=== PATIENT | female | born 1965 | race Native Hawaiian/Other Pacific Islander ===

== ENCOUNTER 2021-06-17 09:12 | Outpatient (CLI) | payer BC | END 2021-06-17 18:57 | disposition home or self-care (01) | LOC: MRI 09:12 | PROVIDERS: ATTEND Anesthesiology Pain Medicine | DX: M54.2 Cervicalgia (principal); M54.50 Low back pain, unspecified ==

== ENCOUNTER 2021-07-17 12:54 | Outpatient (CLI) | payer BC | END 2021-07-17 19:55 | disposition home or self-care (01) | LOC: MRI 12:54 | PROVIDERS: ATTEND Anesthesiology Pain Medicine | DX: M54.2 Cervicalgia (principal) ==

== ENCOUNTER 2021-12-30 08:11 | Outpatient (CLI) | payer BC | END 2021-12-30 19:51 | disposition home or self-care (01) | LOC: NM 08:11 | PROVIDERS: ATTEND Physician Assistant | DX: R10.11 Right upper quadrant pain (principal); R11.2 Nausea with vomiting, unspecified | CPT/HCPCS: A9537 ==